=== PATIENT | female | born 1955 | race Caucasian/White ===

== ENCOUNTER 2020-05-08 20:16 | Emergency (ER) | payer MEDICARE, OTHER ==
[~2020-05-08 20:16] MED LIST: ASPIRIN EC81 MG PO; AUGMENTIN 875-1 EACH PO; AZITHROMYCIN250 MG PO; CELEBREX200 MG PO; CELEXA40 MG PO; CITALOPRAM HBR40 MG PO; DONEPEZIL HCL5 MG PO; EPCLUSA 200 MG1 EACH PO; GABAPENTIN800 MG PO; HYSINGLA ER30 MG PO; IBUPROFEN400 MG PO; IBUPROFEN800 MG PO; KLONOPIN1 MG PO; MACROBID 100 M100 MG PO; MEDROL4 MG PO; NEURONTIN800 MG PO; NORCO 7.5-3251 EACH PO; OMNICEF 300 MG300 MG PO; ORENCIA125 MG/1 M INJ; PREDNISONE 50 M50 MG PO; PREDNISONE50 MG PO; PROVENTIL HFA6.7 GM INH; PYRIDIUM100 MG PO; QUETIAPINE FUMA25 MG PO; ROBITUSSIN DM473 ML PO; SOFOSBUVIR-VEL1 EACH PO; VENTOLIN HFA 66.7 GM INH; VENTOLIN/PROVE0.5 ML INH; VIBRAMYCIN100 MG PO; VITAMIN D21250 MCG PO; ZITHROMAX500 MG PO
[2020-05-08] MEDS ORDERED: CELEBREX100 MG PO (20:47)
== END 2020-05-08 20:55 | disposition home or self-care (01) ==
LOC: ER1 20:16
DX: G89.29 Other chronic pain (principal); M25.59 Pain in other specified joint; J44.9 Chronic obstructive pulmonary disease, unspecified; F17.200 Nicotine dependence, unspecified, uncomplicated; Z88.5 Allergy status to narcotic agent; Z90.710 Acquired absence of both cervix and uterus
CPT/HCPCS: 99283

== ENCOUNTER 2020-05-14 15:29 | Emergency (ER) | payer MEDICARE, OTHER ==
[~2020-05-14 15:29] MED LIST changes: +CELEBREX100 MG PO
== END 2020-05-14 16:04 | disposition home or self-care (01) ==
LOC: ER1 15:29
DX: G89.29 Other chronic pain (principal); M79.642 Pain in left hand; M79.641 Pain in right hand; F17.210 Nicotine dependence, cigarettes, uncomplicated; M06.9 Rheumatoid arthritis, unspecified; Z79.899 Other long term (current) drug therapy; Z90.49 Acquired absence of other specified parts of digestive tract; Z90.710 Acquired absence of both cervix and uterus; Z88.5 Allergy status to narcotic agent; Z86.19 Personal history of other infectious and parasitic diseases
CPT/HCPCS: 96372; 99283; J2270; J2930

== ENCOUNTER 2020-05-31 15:23 | Emergency (ER) | payer MEDICARE, OTHER | END 2020-05-31 16:40 | disposition home or self-care (01) | LOC: ER1 15:23 | DX: M06.9 Rheumatoid arthritis, unspecified (principal); J44.9 Chronic obstructive pulmonary disease, unspecified; I10 Essential (primary) hypertension; F17.210 Nicotine dependence, cigarettes, uncomplicated; Z88.6 Allergy status to analgesic agent; Z88.1 Allergy status to other antibiotic agents; Z88.5 Allergy status to narcotic agent; Z90.710 Acquired absence of both cervix and uterus | CPT/HCPCS: 96372; 99283; J1885; J2270; J2930 ==

== ENCOUNTER → 2020-06-11 | Outpatient (CLI) | payer MEDICARE, OTHER | LOC: EXRD 14:31 | DX: M19.042 Primary osteoarthritis, left hand (principal); M19.041 Primary osteoarthritis, right hand | CPT/HCPCS: 73130 ==

== ENCOUNTER → 2020-07-07 | Outpatient (CLI) | payer MEDICARE | LOC: EXRD 13:00 | DX: M81.0 Age-related osteoporosis without current pathological fracture (principal) | CPT/HCPCS: 77080 ==

== ENCOUNTER 2020-09-07 18:35 | Emergency (ER) | payer MEDICARE | END 2020-09-07 23:28 | disposition home or self-care (01) | LOC: ER1 18:35 | DX: F33.9 Major depressive disorder, recurrent, unspecified (principal); F41.9 Anxiety disorder, unspecified; F17.210 Nicotine dependence, cigarettes, uncomplicated; Z20.822 Contact with and (suspected) exposure to COVID-19; Z86.19 Personal history of other infectious and parasitic diseases | CPT/HCPCS: 96372; 99284; J1885; U0002 ==

== ENCOUNTER → 2020-09-16 | Outpatient (CLI) | payer MEDICARE ==
[~2020-09-16] VITALS: Ht 154.9 cm; Wt 45.4 kg
[~2020-09-16] MED LIST changes: +Voltaren Gel 1 % TOP
== END ==
LOC: OPSV 12:52
DX: M81.0 Age-related osteoporosis without current pathological fracture (principal)
CPT/HCPCS: 96372; J3489

== ENCOUNTER 2020-10-18 10:46 | Emergency (ER) | payer MEDICARE ==
[~2020-10-18 10:46] MED LIST changes: -Voltaren Gel 1 % TOP
[2020-10-18] MEDS ORDERED: Voltaren Gel 1 % TOP (13:04)
== END 2020-10-18 13:50 | disposition home or self-care (01) ==
LOC: ER1 10:46
DX: G89.29 Other chronic pain (principal); M19.90 Unspecified osteoarthritis, unspecified site; J44.9 Chronic obstructive pulmonary disease, unspecified; Z90.49 Acquired absence of other specified parts of digestive tract; F17.210 Nicotine dependence, cigarettes, uncomplicated; Z90.710 Acquired absence of both cervix and uterus; Z88.2 Allergy status to sulfonamides; Z86.19 Personal history of other infectious and parasitic diseases
CPT/HCPCS: 96372; 99283; J2270; J2930

== ENCOUNTER 2020-12-18 12:29 | Emergency (ER) | payer MEDICARE ==
[~2020-12-18 12:29] MED LIST changes: +Voltaren Gel 1 % TOP
== END 2020-12-18 16:00 | disposition home or self-care (01) ==
LOC: ER1 12:29
DX: M25.552 Pain in left hip (principal); M06.9 Rheumatoid arthritis, unspecified; M19.90 Unspecified osteoarthritis, unspecified site
CPT/HCPCS: 73502; 99283

== ENCOUNTER → 2021-01-04 | Outpatient (CLI) | payer MEDICARE | LOC: RAD 11:39 | DX: M54.50 Low back pain, unspecified (principal); M47.816 Spondylosis without myelopathy or radiculopathy, lumbar region; M51.36 Other intervertebral disc degeneration, lumbar region | CPT/HCPCS: 72100 ==

== ENCOUNTER → 2021-03-23 | Outpatient (CLI) | payer MEDICARE ==
[~2021-03-23] VITALS: Ht 177.8 cm; Wt 45.4 kg
== END ==
LOC: OPSV 03-16 12:00
DX: M81.0 Age-related osteoporosis without current pathological fracture (principal)
CPT/HCPCS: 96372

== ENCOUNTER 2021-07-05 22:28 | Emergency (ER) | payer MEDICARE | END 2021-07-06 01:15 | disposition left against medical advice (07) | LOC: ER1 22:28 | DX: Z53.21 Procedure and treatment not carried out due to patient leaving prior to being seen by health care provider (principal) ==

== ENCOUNTER → 2021-07-16 | Outpatient (CLI) | payer MEDICARE ==
[2021-07-16 13:21] LABS: HEMOGLOBIN 16.6 gm/dl (12.3-15.3); RED BLOOD COUNT 5.68 M/UL (4.00-5.10); WHITE BLOOD COUNT 7.6 K/UL (4.5-11.0)
[2021-07-16 13:43] LABS: BUN/CREATININE RATIO 7 (0-10)
[2021-07-17 08:14] LABS: HBSAG SCREEN Negative (Negative); HEP A AB, IGM Negative (Negative); HEP B CORE AB, IGM Negative (Negative); HEP C VIRUS AB >11.0 (0.0-0.9)
== END ==
LOC: LAB 11:38
PROVIDERS: Internal Medicine
DX: M05.79 Rheumatoid arthritis with rheumatoid factor of multiple sites without organ or systems involvement (principal); B19.20 Unspecified viral hepatitis C without hepatic coma; M15.9 Polyosteoarthritis, unspecified; M79.7 Fibromyalgia; R53.83 Other fatigue; M51.34 Other intervertebral disc degeneration, thoracic region; M81.0 Age-related osteoporosis without current pathological fracture; Z90.49 Acquired absence of other specified parts of digestive tract
CPT/HCPCS: 36415; 71046; 73120; 80053; 80074; 85025; 85652; 86140; 86200; 86430; 86431

== ENCOUNTER → 2021-09-09 | Outpatient (CLI) | payer MEDICARE ==
[2021-09-09 15:34] LABS: BUN/CREATININE RATIO 7 (0-10)
== END ==
LOC: MRI 12:57
PROVIDERS: Family Medicine
DX: M51.36 Other intervertebral disc degeneration, lumbar region (principal); M06.9 Rheumatoid arthritis, unspecified
CPT/HCPCS: 36415; 72158; 80048; A9577